=== PATIENT | male | born 1980 | race Caucasian/White ===

== ENCOUNTER 2018-10-16 19:21 | Emergency (ER) | payer BC ==
[2018-10-16] MEDS: IBUPROFEN 800 MG TAB PO (20:24)
== END 2018-10-16 22:10 | disposition home or self-care (01) ==
LOC: FTE 19:21
DX: S13.4XXA Sprain of ligaments of cervical spine, initial encounter (principal); S39.012A Strain of muscle, fascia and tendon of lower back, initial encounter; S63.502A Unspecified sprain of left wrist, initial encounter; V49.59XA Passenger injured in collision with other motor vehicles in traffic accident, initial encounter
CPT/HCPCS: 73110; 73110-LT; 99283-25